=== PATIENT | female | born 1950 | race Caucasian/White ===

== ENCOUNTER → 2016-07-02 | Day surgery (SDC) | payer MEDICARE, SELFPAY | END | disposition home or self-care (01) | LOC: SDC 06:01 | DX: H25.811 Combined forms of age-related cataract, right eye (principal); Z85.038 Personal history of other malignant neoplasm of large intestine; I10 Essential (primary) hypertension; J44.9 Chronic obstructive pulmonary disease, unspecified; K21.9 Gastro-esophageal reflux disease without esophagitis; G47.30 Sleep apnea, unspecified; Z88.6 Allergy status to analgesic agent; Z91.040 Latex allergy status; Z79.899 Other long term (current) drug therapy | CPT/HCPCS: C1780; J0171; J1100; J1580; J2704 ==

== ENCOUNTER 2016-08-15 20:56 | Emergency (ER) | payer OTHER | END 2016-08-15 22:32 | disposition home or self-care (01) | LOC: ER 20:56 | DX: S40.011A Contusion of right shoulder, initial encounter (principal); S70.01XA Contusion of right hip, initial encounter; S50.01XA Contusion of right elbow, initial encounter; J45.909 Unspecified asthma, uncomplicated; I10 Essential (primary) hypertension; E78.5 Hyperlipidemia, unspecified; Z90.49 Acquired absence of other specified parts of digestive tract; Z79.899 Other long term (current) drug therapy; Z91.040 Latex allergy status; Z88.6 Allergy status to analgesic agent; Z85.038 Personal history of other malignant neoplasm of large intestine; W01.0XXA Fall on same level from slipping, tripping and stumbling without subsequent striking against object, initial encounter; Y92.69 Other specified industrial and construction area as the place of occurrence of the external cause; Y99.0 Civilian activity done for income or pay | CPT/HCPCS: 73502-RT ==